=== PATIENT | female | born 1955 | race Caucasian/White ===

== ENCOUNTER 2021-01-25 17:21 | Emergency (ER) | payer MEDICARE, MEDICAID ==
[~2021-01-25] VITALS: Ht 170.2 cm; Wt 63.6 kg
[2021-01-25] MEDS ORDERED: normal saline 1000ML IV soln IVB ONE (17:50)
[2021-01-25] MEDS ORDERED: dextrose 5%-1/2 normal saline 1,000 ML IV ONE (18:20)
[2021-01-25 18:29] LABS: EOSINOPHILS # (AUTO) 0.2 X10'3 (0-0.9); EOSINOPHILS % (AUTO) 3.7 % (0-6); HEMATOCRIT 36.1 % (35.0-45.0); HEMOGLOBIN 12.4 g/dl (12.0-16.0); LYMPHOCYTES # (AUTO) 1.2 X10'3 (1.1-4.8); LYMPHOCYTES % (AUTO) 27.7 % (21-51); MEAN CORPUSCULAR HEMOGLOBIN 34.2 PG (27.0-31.0); MEAN CORPUSCULAR HGB CONC 34.4 g/dL (33.0-36.5); MEAN CORPUSCULAR VOLUME 99.5 FL (78-98); MEAN PLATELET VOLUME 6.5 FL (7.4-10.4); MONOCYTES # (AUTO) 0.7 X10'3 (0-0.9); NEUTROPHILS # (AUTO) 2.3 X10'3 (1.8-7.7); NEUTROPHILS % (AUTO) 51.6 % (42-75); PLATELET COUNT 313 X10'3 (140-440); RED BLOOD COUNT 3.62 X10'6 (4.20-5.60); RED CELL DISTRIBUTION WIDTH 12.5 % (11.5-14.5); WHITE BLOOD COUNT 4.4 X10'3 (4.5-11.0)
[2021-01-25 18:39] LABS: ALANINE AMINOTRANSFERASE 207 U/L (12-78); ALBUMIN 3.4 G/DL (3.4-5.0); ALKALINE PHOSPHATASE 102 IU/L (46-116); ANION GAP 20 (8-16); ASPARTATE AMINO TRANSFERASE 234 U/L (10-37); BILIRUBIN,TOTAL 0.5 MG/DL (0.1-1.0); BLOOD UREA NITROGEN 16 MG/DL (7-18); BUN/CREATININE RATIO 15.8 (6.6-38.0); CALCIUM 8.5 MG/DL (8.5-10.1); CHLORIDE 95 MMOL/L (99-107); CREATININE 1.01 MG/DL (0.40-0.90); ETHANOL 0.082 GM/DL (0.0-0.010); GLUCOSE 64 MG/DL (70-104); SODIUM 135 MMOL/L (135-145); TOTAL CARBON DIOXIDE 20.4 MMOL/L (24-32); TOTAL PROTEIN 6.9 G/DL (6.4-8.2); eGFR 55 ML/MIN
[2021-01-25 18:45] LABS: POTASSIUM 2.8 MMOL/L (3.5-5.1)
[2021-01-25] MEDS ORDERED: potassium Cl 10 mEq/100mL bag IV ONE (18:50)
[2021-01-25] MEDS ORDERED: folic acid 1mg/0.2ml inj IV ONE (18:50)
[2021-01-25] MEDS ORDERED: potassium Cl 20 mEq SR tablet PO STA (18:50)
[2021-01-25] MEDS ORDERED: thiamine 100mg/ml 2ml inj. IV ONE (18:50)
[2021-01-25 19:03] LABS: MAGNESIUM 1.3 MG/DL (1.5-2.4)
[2021-01-25 20:21] LABS: NUCLEATED RED BLOOD CELLS 1 /100WBC (0-0); TOTAL CELLS COUNTED 100
[2021-01-25 20:22] LABS: PLATELET ESTIMATE NORMAL
[2021-01-26 00:03] VITALS: BP 95/116
== END 2021-01-25 23:50 | disposition home or self-care (01) ==
LOC: ER 17:21
DX: S00.83XA Contusion of other part of head, initial encounter (principal); E86.0 Dehydration; F10.129 Alcohol abuse with intoxication, unspecified; F32.9 Major depressive disorder, single episode, unspecified; R62.7 Adult failure to thrive; M54.2 Cervicalgia; W19.XXXA Unspecified fall, initial encounter; Y93.89 Activity, other specified; Y92.89 Other specified places as the place of occurrence of the external cause; Y99.8 Other external cause status; Y90.0 Blood alcohol level of less than 20 mg/100 ml
CPT/HCPCS: 36415; 70450; 71045; 72125; 80053; 80320; 82948; 83735; 85007; 85025; 93005; 96361; 96374; 96375; 99285; J3411; J3480; J3490

== ENCOUNTER 2022-02-01 14:01 | Emergency (ER) | payer BC, MEDICAID ==
[~2022-02-01] VITALS: Ht 170.2 cm; Wt 54.5 kg
[2022-02-01 14:29] LABS: BASOPHILS # (AUTO) 0.1 X10'3 (0-0.2); BASOPHILS % (AUTO) 0.5 % (0-1); EOSINOPHILS % (AUTO) 0.1 % (0-6); HEMATOCRIT 34.9 % (35.0-45.0); LYMPHOCYTES # (AUTO) 1.6 X10'3 (1.1-4.8); LYMPHOCYTES % (AUTO) 15.5 % (21-51); MEAN CORPUSCULAR HEMOGLOBIN 31.8 PG (27.0-31.0); MEAN CORPUSCULAR HGB CONC 34.3 g/dL (33.0-36.5); MEAN CORPUSCULAR VOLUME 92.6 FL (78-98); MEAN PLATELET VOLUME 6.6 FL (7.4-10.4); MONOCYTES # (AUTO) 0.9 X10'3 (0-0.9); NEUTROPHILS # (AUTO) 7.5 X10'3 (1.8-7.7); NEUTROPHILS % (AUTO) 74.9 % (42-75); PLATELET COUNT 373 X10'3 (140-440); RED BLOOD COUNT 3.77 X10'6 (4.20-5.60); RED CELL DISTRIBUTION WIDTH 13.4 % (11.5-14.5)
[2022-02-01 14:42] LABS: ALANINE AMINOTRANSFERASE 35 U/L (12-78); ALBUMIN 4.1 G/DL (3.4-5.0); ALBUMIN/GLOBULIN RATIO 1.1 (1.1-1.5); ALKALINE PHOSPHATASE 86 IU/L (46-116); ANION GAP 15 (8-16); ASPARTATE AMINO TRANSFERASE 43 U/L (10-37); BILIRUBIN,TOTAL 0.6 MG/DL (0.1-1.0); BLOOD UREA NITROGEN 25 MG/DL (7-18); BUN/CREATININE RATIO 20.8 (6.6-38.0); CALCIUM 9.8 MG/DL (8.5-10.1); CHLORIDE 100 MMOL/L (99-107); GLUCOSE 90 MG/DL (70-104); POTASSIUM 4.1 MMOL/L (3.5-5.1); SODIUM 137 MMOL/L (135-145); TOTAL CARBON DIOXIDE 22.2 MMOL/L (24-32); TOTAL PROTEIN 7.7 G/DL (6.4-8.2); eGFR 45 ML/MIN
[2022-02-01 15:30] LABS: CLARITY,URINE SLIGHTLY CLOUDY (Clear); COLOR,URINE YELLOW (Yellow); GLUCOSE, URINE NEGATIVE (Neg); KETONES,URINE 15 mg/dl (Neg); LEUKOCYTE ESTERASE ,URINE NEGATIVE (Neg); NITRITES, URINE NEGATIVE (Neg); OCCULT BLOOD,URINE NEGATIVE (Neg); PH,URINE 5.5 (4.8-8.0); PROTEIN,URINE TRACE mg/dl (Neg); UROBILINOGEN,URINE 0.2 E.U/dL (0.2-1.0)
[2022-02-01 15:34] LABS: UA COLLECTION TYPE CLN CATCH MIDSTREAM
[2022-02-01 15:36] LABS: SQUAMOUS EPITHELIAL CELL,UR MANY /LPF (FEW)
[2022-02-01 15:37] LABS: MUCUS STRANDS MODERATE /LPF (Neg); URINE AMPHETAMINE SCREEN POSITIVE (Neg); URINE BARBITUATE SCREEN NEGATIVE (Neg); URINE BENZODIAZEPINES SCREEN NEGATIVE (Neg); URINE CANNABINOID SCREEN POSITIVE (Neg); URINE COCAINE SCREEN NEGATIVE (Neg); URINE METHADONE SCREEN NEGATIVE (Neg); URINE OPIATE SCREEN NEGATIVE (Neg); URINE PHENCYCLIDINE SCREEN NEGATIVE (Neg)
[2022-02-01 15:39] LABS: BACTERIA,URINE FEW /HPF (Neg); RBC,URINE 0-2 /HPF (0-2)
[2022-02-01] MEDS ORDERED: normal saline 1000ml 1,000 ML IV ONE (16:50)
[2022-02-01] MEDS ORDERED: LORazepam 2 mg/ml vial IV ONE (17:00)
[2022-02-01 17:51] LABS: CREATINE KINASE 785 U/L (26-192)
[2022-02-01 18:11] VITALS: BP 109/84
== END 2022-02-01 18:14 | disposition home or self-care (01) ==
LOC: ER 14:02
DX: F15.10 Other stimulant abuse, uncomplicated (principal); R00.0 Tachycardia, unspecified
CPT/HCPCS: 36415; 80053; 80305; 81001; 82550; 85025; 96374; 99283; J2060; J7030

== ENCOUNTER 2022-02-01 23:37 | Emergency (ER) | payer BC, MEDICAID ==
[~2022-02-01] VITALS: Ht 167.6 cm; Wt 55.9 kg
--- NOTE | 2022-02-02 01:01 | NUR ---
Rao wilson in [facility] [place] - 02/02/22 at 0103 by EUGENIA MD at bedside
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
[2022-02-02] MEDS ORDERED: TETanus/Pertussis (Acell)/Diphther VAC/PF (Tdap-Adult) 0.5ml syringe IMVAC ONE (03:05)
[2022-02-02] MEDS ORDERED: LIDOcaine 1% 30ml preserv. free vial IJ ONE (03:05)
--- NOTE | 2022-02-02 03:24 | NUR ---
at bedside repairing laceration
[2022-02-02 06:16] LABS: BASOPHILS % (AUTO) 0.7 % (0-1); EOSINOPHILS % (AUTO) 0.6 % (0-6); HEMATOCRIT 34.7 % (35.0-45.0); HEMOGLOBIN 11.5 g/dl (12.0-16.0); LYMPHOCYTES # (AUTO) 1.4 X10'3 (1.1-4.8); LYMPHOCYTES % (AUTO) 23.2 % (21-51); MEAN CORPUSCULAR HEMOGLOBIN 30.7 PG (27.0-31.0); MEAN CORPUSCULAR HGB CONC 33.1 g/dL (33.0-36.5); MEAN PLATELET VOLUME 6.6 FL (7.4-10.4); MONOCYTES # (AUTO) 0.7 X10'3 (0-0.9); MONOCYTES % (AUTO) 11.2 % (2-12); NEUTROPHILS % (AUTO) 64.3 % (42-75); PLATELET COUNT 344 X10'3 (140-440); RED BLOOD COUNT 3.73 X10'6 (4.20-5.60); RED CELL DISTRIBUTION WIDTH 13.5 % (11.5-14.5); WHITE BLOOD COUNT 6.2 X10'3 (4.5-11.0)
[2022-02-02 07:47] LABS: ALANINE AMINOTRANSFERASE 40 U/L (12-78); ALBUMIN 3.4 G/DL (3.4-5.0); ALBUMIN/GLOBULIN RATIO 1.1 (1.1-1.5); ALKALINE PHOSPHATASE 78 IU/L (46-116); ANION GAP 13 (8-16); ASPARTATE AMINO TRANSFERASE 46 U/L (10-37); BILIRUBIN,TOTAL 0.7 MG/DL (0.1-1.0); BLOOD UREA NITROGEN 25 MG/DL (7-18); BUN/CREATININE RATIO 25.5 (6.6-38.0); CALCIUM 8.9 MG/DL (8.5-10.1); CHLORIDE 105 MMOL/L (99-107); CREATININE 0.98 MG/DL (0.40-0.90); GLUCOSE 96 MG/DL (70-104); POTASSIUM 3.6 MMOL/L (3.5-5.1); SODIUM 140 MMOL/L (135-145); TOTAL CARBON DIOXIDE 21.8 MMOL/L (24-32); TOTAL PROTEIN 6.5 G/DL (6.4-8.2); eGFR 56 ML/MIN
[2022-02-02] MEDS ORDERED: folic acid 1mg tablet PO ONE (08:10)
[2022-02-02] MEDS ORDERED: thiamine 100mg tablet PO ONE (08:10)
[2022-02-02 09:00] VITALS: BP 113/77
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
[2022-02-02 10:42] LABS: ETHANOL < 0.010 GM/DL (0.0-0.010); MAGNESIUM 1.5 MG/DL (1.5-2.4)
== END 2022-02-02 10:06 | disposition home or self-care (01) ==
LOC: ER 23:38
DX: S01.81XA Laceration without foreign body of other part of head, initial encounter (principal); F15.90 Other stimulant use, unspecified, uncomplicated; Z20.3 Contact with and (suspected) exposure to rabies; W19.XXXA Unspecified fall, initial encounter; Y93.89 Activity, other specified; Y92.89 Other specified places as the place of occurrence of the external cause; Y99.8 Other external cause status
CPT/HCPCS: 12011; 36415; 70450; 72125; 80053; 80320; 83735; 84443; 85025; 90471; 90715; 99285